=== PATIENT | male | born 2000 | race Two or more races ===

== ENCOUNTER 2021-09-03 17:18 | Emergency (ER) | payer MEDICAID ==
[~2021-09-03] VITALS: Ht 182.9 cm; Wt 75.7 kg
[2021-09-03] MEDS ORDERED: ACETAMINOPHEN 325 MG TABLET PO ONE (18:00)
[2021-09-03] MEDS ORDERED: ACETAMINOPHEN 325 MG TABLET ONE (18:16)
[2021-09-03 18:21] VITALS: BP 139/90
[2021-09-03] MEDS ORDERED: IBUP-1955 PO (20:03)
[2021-09-03] MEDS ORDERED: CYCL5TAB PO (20:03)
--- NOTE | 2021-09-03 20:20 | NUR ---
Patient discharged to home in stable condition. Written and verbal after care instructions given. Patient verbalizes understanding of instruction.
== END 2021-09-03 20:20 | disposition home or self-care (01) ==
LOC: ER 17:19
DX: M54.6 Pain in thoracic spine (principal)
CPT/HCPCS: 71045-TC; 72128-TC